=== PATIENT | female | born 1975 | race Caucasian/White ===

== ENCOUNTER 2018-08-24 17:53 | Emergency (ER) | payer MEDICAID, OTHER ==
[~2018-08-24] VITALS: Ht 162.6 cm; Wt 80.3 kg
[2018-08-24 19:07] LABS: Basophils # (auto) 0 uL; Basophils % (auto) 0.3 % (0.0-2.0); Eosinophils # (auto) 0.1 uL; Eosinophils % (auto) 1.5 % (0.0-7.0); Hematocrit 42.5 % (36.0-46.0); Hemoglobin 13.9 g/dL (12.2-16.2); Lymphocytes # (auto) 3.2 uL; Mean Corpuscular Hemoglobin 29.7 pg (28.0-32.0); Mean Corpuscular Hgb Conc. 32.7 g/dL (32.0-36.0); Mean Corpuscular Volume 90.7 fL (80.0-100.0); Monocytes # (auto) 0.5 uL; Monocytes % (auto) 6.1 % (0.0-12.0); Neutrophils % (auto) 51.1 % (37.0-80.0); Nucleated Red Blood Cells % 0.1 %; Platelet Count (auto) 178 10^3/uL (140-450); Red Blood Cells 4.68 10^6/uL (4.0-5.20); Red Cell Distribution Width 13.8 % (11.8-14.3); White Blood Cell 7.8 10^3/uL (4.4-10.8)
[2018-08-24 19:22] LABS: BUN/Creatinine Ratio 10.3; Calcium 8.6 mg/dL (8.5-10.1); Potassium 3.4 mmol/L (3.5-5.1)
[2018-08-24 19:25] LABS: Bilirubin, Total 0.4 mg/dL (0.2-1.0); Total Protein 6.9 g/dL (6.4-8.2)
[2018-08-24] MEDS ORDERED: SODIUM CHLORIDE 0.9% 1,000 ML IV ONE (19:30)
[2018-08-24 20:42] VITALS: BP 107/79
== END 2018-08-24 20:46 | disposition home or self-care (01) ==
LOC: EDBD 17:53 → ER 17:56
DX: T78.00XA Anaphylactic reaction due to unspecified food, initial encounter (principal); Z88.0 Allergy status to penicillin; Z88.1 Allergy status to other antibiotic agents
CPT/HCPCS: 36415; 80053; 81025; 84702; 85025; 99284; J7030